=== PATIENT | male | born 1990 | race African-American/Black ===

== ENCOUNTER 2017-06-20 12:30 | Emergency (ER) | payer SELFPAY ==
[~2017-06-20] VITALS: Ht 177.8 cm; Wt 60.0 kg
[2017-06-20 12:34] VITALS: BP 106/59
[2017-06-20] MEDS ORDERED: LIDOCAINE HCL 1% 20ML VIAL (Pyxis) INJ INFIL ONE (12:45)
[2017-06-20] MEDS ORDERED: TETANUS, DIPHTHERIA, PERTUSSIS VAC/PF 0.5ML (>7YR OLD) IM ONE (12:45)
[2017-06-20] MEDS ORDERED: BACITRACIN ZINC OINT UDPKT TOP ONE (13:45)
== END 2017-06-20 16:28 | disposition home or self-care (01) ==
LOC: ER 13:11
DX: S01.112A Laceration without foreign body of left eyelid and periocular area, initial encounter (principal); W18.39XA Other fall on same level, initial encounter; Y93.89 Activity, other specified; Y92.89 Other specified places as the place of occurrence of the external cause; Y99.8 Other external cause status
CPT/HCPCS: 12013; 90471; 90715; 99283; J3490; X7700; Z7610; 12002

== ENCOUNTER 2017-06-22 10:31 | Emergency (ER) | payer SELFPAY ==
[~2017-06-22] VITALS: Ht 185.4 cm; Wt 57.0 kg
[2017-06-22 10:37] VITALS: BP 99/63
== END 2017-06-22 11:11 | disposition left against medical advice (07) ==
LOC: ER 10:45
DX: Z53.21 Procedure and treatment not carried out due to patient leaving prior to being seen by health care provider (principal)

== ENCOUNTER 2017-07-06 08:07 | Emergency (ER) | payer SELFPAY ==
[~2017-07-06] VITALS: Ht 185.4 cm; Wt 73.0 kg
[2017-07-06 08:22] VITALS: BP 111/62
== END 2017-07-06 10:46 | disposition home or self-care (01) ==
LOC: ER 09:21
DX: S01.81XD Laceration without foreign body of other part of head, subsequent encounter (principal); F12.10 Cannabis abuse, uncomplicated; X58.XXXD Exposure to other specified factors, subsequent encounter
CPT/HCPCS: 99281; Z7610

== ENCOUNTER 2017-10-26 09:22 | Emergency (ER) | payer SELFPAY ==
[~2017-10-26] VITALS: Ht 185.4 cm; Wt 58.0 kg
[2017-10-26] MEDS ORDERED: CEFTRIAXONE SODIUM 250 MG/VIAL IM ONE (11:00)
[2017-10-26] MEDS ORDERED: AZITHROMYCIN 500 MG TABLET PO ONE (11:00)
[2017-10-26 11:05] LABS: CLARITY URINE CLEAR (CLEAR); COLOR URINE YELLOW (YELLOW); KETONES URINE NEGATIVE (NEGATIVE); LEUKOCYTE ESTERASE URINE NEGATIVE (NEGATIVE); NITRITE URINE NEGATIVE (NEGATIVE); OCCULT BLOOD URINE 2+ (NEGATIVE); PH URINE 7.5 (4.5-8.0); PROTEIN URINE NEGATIVE (NEGATIVE); SPECIFIC GRAVITY URINE 1.019 (1.005-1.030); UROBILINOGEN URINE 0.2 E.U./dL (0.2-1.0)
[2017-10-26 11:56] VITALS: BP 114/73
== END 2017-10-26 11:58 | disposition home or self-care (01) ==
LOC: ER 09:49
DX: R30.0 Dysuria (principal); F12.10 Cannabis abuse, uncomplicated
CPT/HCPCS: 81003; 96372; 99283; J0696

== ENCOUNTER 2018-08-28 10:28 | Emergency (ER) | payer SELFPAY ==
[~2018-08-28] VITALS: Ht 185.4 cm; Wt 59.0 kg
[2018-08-28 13:08] VITALS: BP 135/66
== END 2018-08-28 13:09 | disposition home or self-care (01) ==
LOC: ER 11:28
DX: J06.9 Acute upper respiratory infection, unspecified (principal)
CPT/HCPCS: 71045; 99283

== ENCOUNTER 2018-10-27 17:51 | Emergency (ER) | payer MEDICAID ==
[~2018-10-27] VITALS: Ht 185.4 cm; Wt 58.0 kg
[2018-10-27 17:58] VITALS: BP 117/67
== END 2018-10-27 22:00 | disposition left against medical advice (07) ==
LOC: ER 17:51
DX: Z53.21 Procedure and treatment not carried out due to patient leaving prior to being seen by health care provider (principal)

== ENCOUNTER 2024-01-23 02:26 | Emergency (ER) | payer MEDICAID ==
[~2024-01-23] VITALS: Ht 182.9 cm; Wt 60.7 kg
[2024-01-23 02:33] VITALS: BP 123/83; PULSE 110; RESP 13; TEMP 98.6; O2SAT 100
== END 2024-01-23 02:53 | disposition left against medical advice (07) ==
LOC: ER 02:26
DX: R07.89 Other chest pain (principal); F12.10 Cannabis abuse, uncomplicated
CPT/HCPCS: 71045; 93005; 99283

== ENCOUNTER 2024-06-01 17:23 | Emergency (ER) | payer MEDICAID ==
[~2024-06-01] VITALS: Ht 185.4 cm; Wt 65.9 kg
[2024-06-01 17:26] VITALS: O2SAT 97
[2024-06-01 17:34] VITALS: BP 122/79; PULSE 99; RESP 16; TEMP 98.3; O2SAT 100
[2024-06-01] MEDS: IBUPROFEN 600MG TABLET PO ONE (20:19)
[2024-06-01] MEDS ORDERED: METH-653 MT (21:05)
== END 2024-06-01 21:13 | disposition home or self-care (01) ==
LOC: ER 17:23
DX: M54.2 Cervicalgia (principal); M79.646 Pain in unspecified finger(s); M79.661 Pain in right lower leg; F12.10 Cannabis abuse, uncomplicated; V49.49XA Driver injured in collision with other motor vehicles in traffic accident, initial encounter; Y93.89 Activity, other specified; Y92.89 Other specified places as the place of occurrence of the external cause; Y99.8 Other external cause status
CPT/HCPCS: 73130; 73590; 99284

== ENCOUNTER 2025-06-27 18:53 | Emergency (ER) | payer MEDICAID ==
[~2025-06-27] VITALS: Ht 185.4 cm; Wt 60.0 kg
[~2025-06-27 18:53] MED LIST: METH-653 MT
[2025-06-27 19:05] VITALS: TEMP 36.8; O2SAT 98
[2025-06-27 22:21] VITALS: BP 111/69; PULSE 70; RESP 19; O2SAT 100
== END 2025-06-27 22:22 | disposition home or self-care (01) ==
LOC: ER 18:53
DX: S61.210D Laceration without foreign body of right index finger without damage to nail, subsequent encounter (principal); X58.XXXD Exposure to other specified factors, subsequent encounter
CPT/HCPCS: 99282

== ENCOUNTER 2025-07-02 18:21 | Emergency (ER) | payer MEDICAID ==
[~2025-07-02] VITALS: Ht 185.4 cm; Wt 62.0 kg
[2025-07-02 18:34] VITALS: O2SAT 99
[2025-07-02 18:43] VITALS: BP 115/75; PULSE 98; RESP 18; TEMP 36.8; O2SAT 99
[2025-07-02] MEDS ORDERED: BO1 TP (18:43)
== END 2025-07-02 18:50 | disposition home or self-care (01) ==
LOC: ER 18:21
DX: S61.210D Laceration without foreign body of right index finger without damage to nail, subsequent encounter (principal); F12.90 Cannabis use, unspecified, uncomplicated; X58.XXXD Exposure to other specified factors, subsequent encounter
CPT/HCPCS: 99282; Z7610 ×2